=== PATIENT | male | born 1955 | race Two or more races ===

== ENCOUNTER → 2017-01-11 | Outpatient (REF) | payer OTHER | LOC: M SFHCLERA 15:03 | PROVIDERS: ATTEND Nurse Practitioner Family | DX: M54.5 Low back pain (principal); R05 Cough ==

== ENCOUNTER → 2019-01-26 | Outpatient (REF) | payer OTHER | LOC: M SFHCLERA 12:23 | PROVIDERS: ATTEND Physician Assistant | DX: R30.9 Painful micturition, unspecified (principal) ==